=== PATIENT | female | born 1970 | race Caucasian/White ===

== ENCOUNTER 2019-08-16 12:23 | Emergency (ER) | payer OTHER ==
[~2019-08-16] VITALS: Ht 167.6 cm; Wt 51.7 kg
[2019-08-16 12:26] VITALS: Ht 167.6 cm; Wt 51.7 kg
[2019-08-16 13:00] VITALS: BP 113/71
== END 2019-08-16 13:00 | disposition home or self-care (01) ==
LOC: ED 12:23
DX: L30.9 Dermatitis, unspecified (principal); L03.116 Cellulitis of left lower limb; L03.114 Cellulitis of left upper limb